=== PATIENT | female | born 1965 | race Caucasian/White ===

== ENCOUNTER 2017-12-24 11:00 | Emergency (ER) | payer OTHER, SELFPAY ==
[2017-12-24 11:04] VITALS: BP 133/81; PULSE 88; RESP 20; TEMP 36.8; O2SAT 100; BMI 35.0
[2017-12-24 11:19] LABS: Pregnancy Test Urine Negative (Negative)
[2017-12-24 12:11] VITALS: BP 129/73; PULSE 72; RESP 16; O2SAT 99
--- NOTE | 2017-12-24 12:24 | ED.FEMALEGU ---
HPI - Female Genitourinary General Chief complaint: Urogenital-Female Stated complaint: POSSIBLE KIDNEY STONE Time Seen by Provider: 12/24/17 12:24 Source: patient Mode of arrival: ambulatory Limitations: no limitations History of Present Illness HPI Narrative: This 52-year-old female comes in today due to bladder area pain that she thinks might be a kidney stone. She states this started fairly abruptly at midnight, woke her up and kept her up for about 4 hr. She states that the pain waxes and wanes on its own without any exacerbating or alleviating features. She states that she did have an episode of vomiting early in the morning. None since. She has not eaten today, kept down a small amount of water. She does not feel nauseated now. She has menses now does not know whether any hematuria. She states that she does not have pain in her flanks or elsewhere in her abdomen. She has not had fever, chills, or sweats. She states that she had some bladder/urinary pain about a week ago but seemed to resolve on its own, not having any dysuria now nor frequency or urgency. She denies any other new symptoms such as chest pain, dyspnea, pain or swelling in the extremities. She denies any vaginal discharge or STD concerns. She does have a history of kidney stones and this quality of pain feels similar Related Data Home Medications Medication Instructions Recorded Confirmed aspirin 81 mg PO QPM #0 03/18/17 12/24/17 atorvastatin 80 mg PO BEDTIME #0 03/18/17 12/24/17 empagliflozin [Jardiance] 12.5 mg PO QPM #0 03/18/17 12/24/17 lisinopril 20 mg PO QPM #0 03/18/17 12/24/17 metformin [Glucophage XR] 1,000 mg PO QPM #0 03/18/17 12/24/17 metoprolol tartrate 12.5 mg PO QPM #0 03/18/17 12/24/17 Previous Rx's Medication Instructions Recorded ciprofloxacin HCl [Cipro] 500 mg PO Q12H #10 tab 12/24/17 ondansetron [Zofran ODT] 4 mg PO Q6-8H PRN #6 tab 12/24/17 oxycodone-acetaminophen [Percocet] 1 tab PO Q4-6H PRN #8 tab 12/24/17 Allergies Allergy/AdvReac Type Severity Reaction Status Date / Time No Known Allergies Allergy Uncoded 12/24/17 11:03 Review of Systems Review of Systems All systems reviewed & are unremarkable except as noted in HPI and below PFSH Medical History CAD (coronary artery disease) (Acute) Nephrolithiasis (Acute) Diabetes (Chronic) HTN (hypertension) (Chronic) History of vertigo (Resolved) Surgical History Status post cholecystectomy (Resolved) Status post hernia repair (Resolved) Social History Smoking Status: Never smoker alcohol intake: current substance use type: former substance user Exam Narrative Exam Narrative: GENERAL APPEARANCE: Patient sitting comfortably, in no distress. HEENT: PERRL, EOMI NECK: Supple LUNGS: Clear to auscultation bilaterally. HEART: Rate and rhythm regular, normal S1 and S2, no S3 or S4. ABDOMEN: Soft, nondistended, bowel sounds present x 4 quadrants, no masses palpable, moderate midline suprapubic tenderness without guarding or rebound, no CVAT EXTREMITIES: No edema, no cyanosis DERMATOLOGIC: No jaundice or exanthem NEUROLOGIC: Alert and oriented with normal speech and coordination Initial Vital Signs Initial Vital Signs: Vital Signs Temperature 98.2 F 12/24/17 11:04 Pulse Rate 88 12/24/17 11:04 Respiratory Rate 20 12/24/17 11:04 Blood Pressure 133/81 H 12/24/17 11:04 Pulse Oximetry 100 12/24/17 11:04 Course Orders Ordered: ED Orders 12/24/17 13:01 Complete Blood Count AUTO DIFF Stat Comprehensive Metabolic Panel Stat 12/24/17 13:02 CT kidney ureter bladder (KUB) Stat Discontinued Medications Hydromorphone HCl (Dilaudid) 0.5 mg IV NOW ONE Stop: 12/24/17 12:57 Last Admin: 12/24/17 13:09 Dose: 0.5 mg Sodium Chloride (Normal Saline 0.9%) 1,000 mls @ 1,000 mls/hr IV BOLUS ONE Stop: 12/24/17 13:55 Last Infusion: 12/24/17 14:16 Dose: 0 mls/hr Admin: 12/24/17 13:09 Dose: 1,000 mls/hr Ketorolac Tromethamine (Toradol) 15 mg IV NOW ONE Stop: 12/24/17 12:57 Last Admin: 12/24/17 13:09 Dose: 15 mg Ondansetron HCl (Zofran) 4 mg IV NOW ONE Stop: 12/24/17 12:57 Last Admin: 12/24/17 13:10 Dose: Not Given Vital Signs - 8 hr 12/24/17 13:49 12/24/17 15:13 Pulse Rate 77 72 Respiratory Rate 16 18 Blood Pressure [Left Arm] 121/87 H 125/66 H Pulse Oximetry 97 97 MDM - Female Genitourinary Lab Data Attestation: I reviewed the patient's lab results. Result diagrams: 12/24/17 13:01 12/24/17 13:01 Lab Results 12/24/17 12/24/17 12/24/17 Range/Units 11:02 11:02 13:01 WBC 12.8 H (4.5-11.0) X10^3/uL RBC 5.05 (4.0-5.2) X10^6/uL Hgb 14.4 (12.0-16.0) g/dL Hct 43.7 (36-46) % MCV 86.6 (80-100) fL MCH 28.6 (26-34) PG MCHC 33.0 (30-36) % RDW 14.5 (11.6-14.8) % Plt Count 298 (150-400) X10^3/uL Neut % (Auto) 63.2 (50-75) % Lymph % (Auto) 24.5 L (25-40) % Powell % (Auto) 8.7 (3-14) % Eos % (Auto) 2.3 (2-4) % Baso % (Auto) 1.3 (0-2) % Neut # (Auto) 8100 H (0899-4556) /uL Sodium (137-145) mmol/L Potassium (3.4-5.1) mmol/L Chloride (98-107) mmol/L Carbon Dioxide (22-32) mmol/L BUN (7-17) mg/dL Creatinine (0.52-1.04) mg/dL Estimated GFR (>60) mL/min BUN/Creatinine Ratio (6-22) Glucose (70-100) mg/dL Calcium (8.4-10.2) mg/dL Total Bilirubin (0.2-1.3) mg/dL AST (14-36) IU/L ALT (9-52) IU/L Alkaline Phosphatase (38-126) U/L Total Protein (6.3-8.2) g/dL Albumin (3.5-5.0) g/dL Globulin (1.7-4.1) g/dL Albumin/Globulin Ratio (1.0-2.8) Urine Color Yellow Urine Appearance Cloudy Urine pH 6.0 (4.5-8.0) Ur Specific [place] <=1.005 (1.000-1.035) Urine Protein 1+ H (Negative) Urine Glucose (UA) 2+ (Normal) g/dL Urine Ketones Trace H (NEGATIVE) Urine Occult Blood 3+ H (Negative) Urine Nitrate Negative (Negative) Urine Bilirubin Negative (NEGATIVE) Urine Urobilinogen 0.2 (0.2) E.U./dL Ur Leukocyte Esterase 1+ H (NEGATIVE) Urine RBC 5-10/hpf H (0-5/HPF) Urine WBC >100/hpf H (0-5/HPF) Ur Squamous Epith Cells 1-5 /hpf Urine Bacteria Moderate (10-30) H (None) Ur Culture Indicated? Specimen cultured Micro UA Comment Not Reportable Urine Test Negative (Negative) 12/24/17 Range/Units 13:01 WBC (4.5-11.0) X10^3/uL RBC (4.0-5.2) X10^6/uL Hgb (12.0-16.0) g/dL Hct (36-46) % MCV (80-100) fL MCH (26-34) PG MCHC (30-36) % RDW (11.6-14.8) % Plt Count (150-400) X10^3/uL Neut % (Auto) (50-75) % Lymph % (Auto) (25-40) % Powell % (Auto) (3-14) % Eos % (Auto) (2-4) % Baso % (Auto) (0-2) % Neut # (Auto) (3139-6393) /uL Sodium 145 (137-145) mmol/L Potassium 3.8 (3.4-5.1) mmol/L Chloride 102 (98-107) mmol/L Carbon Dioxide 30 (22-32) mmol/L BUN 11 (7-17) mg/dL Creatinine 0.50 L (0.52-1.04) mg/dL Estimated GFR > 60.0 (>60) mL/min BUN/Creatinine Ratio 22.0 (6-22) Glucose 168 H (70-100) mg/dL Calcium 9.6 (8.4-10.2) mg/dL Total Bilirubin 0.4 (0.2-1.3) mg/dL AST 20 (14-36) IU/L ALT 32 (9-52) IU/L Alkaline Phosphatase 78 (38-126) U/L Total Protein 7.6 (6.3-8.2) g/dL Albumin 4.6 (3.5-5.0) g/dL Globulin 3.0 (1.7-4.1) g/dL Albumin/Globulin Ratio 1.5 (1.0-2.8) Urine Color Urine Appearance Urine pH (4.5-8.0) Ur Specific [place] (1.000-1.035) Urine Protein (Negative) Urine Glucose (UA) (Normal) g/dL Urine Ketones (NEGATIVE) Urine Occult Blood (Negative) Urine Nitrate (Negative) Urine Bilirubin (NEGATIVE) Urine Urobilinogen (0.2) E.U./dL Ur Leukocyte Esterase (NEGATIVE) Urine RBC (0-5/HPF) Urine WBC (0-5/HPF) Ur Squamous Epith Cells Urine Bacteria (None) Ur Culture Indicated? Micro UA Comment Urine Test (Negative) Imaging Data CT scan - abdomen: Radiologist's impression: View Report History [address] [address] [address] Scan Report Signed Patient: Christie Velasquez MR#: [id number] : 1965 Acct:[id number] Age/Sex: 52 / F Date of Service: 12/24/17 Loc: ED Accession Number: [id number] Procedure: CT kidney ureter bladder (KUB) Ordering Provider: Fiorella Bolivar P.A-C PROCEDURE: CT KIDNEY URETER BLADDER (KUB) INDICATIONS: bladder pain, h/o stone TECHNIQUE: Noncontrast 5 mm thick sections acquired from the diaphragms to the symphysis. 5 mm thick coronal and sagittal reformats were then performed. For radiation dose reduction, the following was used: automated exposure control, adjustment of mA and/or kV according to patient size. COMPARISON: None. FINDINGS: Image quality: Excellent. Lung bases: Lung bases are clear. Heart size is normal. Urinary system: Both kidneys are normal in size. 3 mm nonobstructing stone in upper to mid pole of left kidney is seen. No right-sided renal stone.. No hydronephrosis or perinephric fat stranding. Both ureters appear non-dilated throughout their expected courses. There is very mild diffuse bladder wall thickening. No discrete bladder wall mass is seen. No calcified bladder stones. Other solid organs: Liver is normal in size. Gallbladder is surgically absent. Pancreas is normal in contours. Spleen is normal in size. No adrenal nodules. Peritoneum and bowel: Unenhanced bowel loops demonstrate normal wall thickness and caliber. Small hiatal hernia is seen. Appendix is visualized and is within normal limits. No free fluid or air. Nodes and vessels: No retroperitoneal or mesenteric adenopathy by size criteria. Aorta and inferior vena cava are normal in caliber. Abdominal wall: No ventral hernias. Pelvis: No free pelvic fluid. No inguinal hernias or adenopathy. Uterus and bilateral ovaries are within normal limits. Bones: No suspicious bony lesions. No vertebral body compression fractures. IMPRESSION: 1. 3 mm nonobstructing stone in upper to mid pole of kidney. No right-sided renal stone. No hydronephrosis. No perinephric fat stranding. 2. Mild diffuse bladder wall thickening, which may represent cystitis. No discrete bladder wall mass is seen. 3. No bowel obstruction. No peritoneal free fluid of air. Small hiatal hernia. Dictated by: Gonzalez Plata M.D. on 12/24/2017 at 13:20 Approved by: Gonzalez Plata M.D. on 12/24/2017 at 13:24 Discharge Plan Departure Patient Disposition: Home, Self-Care Clinical Impression: Nephrolithiasis, UTI (urinary tract infection) Discharge Date/Time: 12/24/17 16:01 Interventions: ED Discharge Assessment Last Done: 12/24/17 15:56 Instructions: DI for Kidney Stones Activity Restrictions/Additional Instructions: Please return as we talked about if you have any acutely worsening symptoms. Otherwise please stop the new vitamin/dietary supplement you are taking it since it is unclear whether this may have exacerbated any of your symptoms. You have a small stone that is of a size that should pass on its own. It also appears that you could have a urinary infection so I have prescribed an antibiotic for this that you should peanut picker and start. I have prescribed a pain medicine called oxycodone/acetaminophen that you can take as needed, but do not drive as it can make you sleepy. You also may wish to add Aleve [id number] every 12 hr. I have also given you a prescription for nausea medicine in case your nausea comes back. You should follow up with your PCP next few days for recheck Prescriptions: New ciprofloxacin HCl [Cipro] 500 mg tablet 500 mg PO Q12H Qty: 10 RF: 0 oxycodone-acetaminophen [Percocet] 5-325 mg tablet 1 tab PO Q4-6H PRN (Reason: kidneynstone pain) Qty: 8 RF: 0 ondansetron [Zofran ODT] 4 mg tablet,disintegrating 4 mg PO Q6-8H PRN (Reason: nausea and vomiting) Qty: 6 RF: 0 No Action metformin [Glucophage XR] 500 MG tablet extended release 24 hr 1,000 mg PO QPM Qty: 0 RF: 0 lisinopril 20 MG tablet 20 mg PO QPM Qty: 0 RF: 0 empagliflozin [Jardiance] 25 MG tablet 12.5 mg PO QPM Qty: 0 RF: 0 atorvastatin 80 MG tablet 80 mg PO BEDTIME Qty: 0 RF: 0 aspirin 81 MG tablet,delayed release (DR/EC) 81 mg PO QPM Qty: 0 RF: 0 metoprolol tartrate 25 MG tablet 12.5 mg PO QPM Qty: 0 RF: 0 Referrals: Daina Bai [Other]
[2017-12-24 12:43] VITALS: BP 129/73
--- NOTE | 2017-12-24 13:02 | DI.CT.S_ITS ---
PROCEDURE: CT KIDNEY URETER BLADDER (KUB) INDICATIONS: bladder pain, h/o stone TECHNIQUE: Noncontrast 5 mm thick sections acquired from the diaphragms to the symphysis. 5 mm thick coronal and sagittal reformats were then performed. For radiation dose reduction, the following was used: automated exposure control, adjustment of mA and/or kV according to patient size. COMPARISON: None. FINDINGS: Image quality: Excellent. Lung bases: Lung bases are clear. Heart size is normal. Urinary system: Both kidneys are normal in size. 3 mm nonobstructing stone in upper to mid pole of left kidney is seen. No right-sided renal stone.. No hydronephrosis or perinephric fat stranding. Both ureters appear non-dilated throughout their expected courses. There is very mild diffuse bladder wall thickening. No discrete bladder wall mass is seen. No calcified bladder stones. Other solid organs: Liver is normal in size. Gallbladder is surgically absent. Pancreas is normal in contours. Spleen is normal in size. No adrenal nodules. Peritoneum and bowel: Unenhanced bowel loops demonstrate normal wall thickness and caliber. Small hiatal hernia is seen. Appendix is visualized and is within normal limits. No free fluid or air. Nodes and vessels: No retroperitoneal or mesenteric adenopathy by size criteria. Aorta and inferior vena cava are normal in caliber. Abdominal wall: No ventral hernias. Pelvis: No free pelvic fluid. No inguinal hernias or adenopathy. Uterus and bilateral ovaries are within normal limits. Bones: No suspicious bony lesions. No vertebral body compression fractures. IMPRESSION: 1. 3 mm nonobstructing stone in upper to mid pole of kidney. No right-sided renal stone. No hydronephrosis. No perinephric fat stranding. 2. Mild diffuse bladder wall thickening, which may represent cystitis. No discrete bladder wall mass is seen. 3. No bowel obstruction. No peritoneal free fluid of air. Small hiatal hernia. Dictated by: Gonzalez Plata M.D. on 12/24/2017 at 13:20 Approved by: Gonzalez Plata M.D. on 12/24/2017 at 13:24
[2017-12-24 13:08] LABS: Add Manual Diff / Slide Review NO; Basophils Percent Auto 1.3 % (0-2); Eosinophils Percent Auto 2.3 % (2-4); Hematocrit 43.7 % (36-46); Hemoglobin 14.4 g/dL (12.0-16.0); Lymphocytes Percent Auto 24.5 % (25-40); Mean Corpuscular Hemoglobin 28.6 PG (26-34); Mean Corpuscular Volume 86.6 fL (80-100); Monocytes Percent Auto 8.7 % (3-14); Neutrophils Absolute Auto 8100 /uL (3000-5900); Neutrophils Percent Auto 63.2 % (50-75); Platelet Count 298 X10^3/uL (150-400); Red Blood Cell Count 5.05 X10^6/uL (4.0-5.2); Red Cell Distribution Width 14.5 % (11.6-14.8); White Blood Cell Count 12.8 X10^3/uL (4.5-11.0)
[2017-12-24] MEDS: SODIUM CHLORIDE 0.9% 1,000 ML 1000 ML IV (13:09)
[2017-12-24] MEDS: KETOROLAC 15 MG/ML VIAL IV (13:09)
[2017-12-24] MEDS: HYDROMORPHONE 1 MG INJ 0.5 MG IV (13:09)
[2017-12-24 13:21] LABS: Appearance Urine UA CLOUDY; Bilirubin Urine UA NEGATIVE (NEGATIVE); Color Urine UA YELLOW; Glucose Urine UA 2+ g/dL (Normal); Ketones Urine UA TRACE (NEGATIVE); Leukocyte Esterase Urine UA 1+ (NEGATIVE); Nitrite Urine UA Negative (Negative); Occult Blood Urine UA 3+ (Negative); Protein Urine UA 1+ (Negative); Specific Gravity Urine UA <=1.005 (1.000-1.035); Urobilinogen Urine UA 0.2 E.U./dL (0.2)
[2017-12-24 13:22] LABS: Alanine Aminotransferase 32 IU/L (9-52); Albumin 4.6 g/dL (3.5-5.0); Albumin Globulin Ratio 1.5 (1.0-2.8); Alkaline Phosphatase 78 U/L (38-126); Aspartate Aminotransferase 20 IU/L (14-36); Bilirubin Total 0.4 mg/dL (0.2-1.3); Blood Urea Nitrogen 11 mg/dL (7-17); Calcium 9.6 mg/dL (8.4-10.2); Carbon Dioxide 30 mmol/L (22-32); Chloride 102 mmol/L (98-107); Estimated Glomerular Filt Rate > 60.0 mL/min (>60); Glucose 168 mg/dL (70-100); HEMOLYSIS 18 (0-50); Potassium 3.8 mmol/L (3.4-5.1); Sodium 145 mmol/L (137-145); Total Protein 7.6 g/dL (6.3-8.2)
[2017-12-24 13:31] LABS: RBC Urine 5-10/HPF (0-5/HPF); Squamous Epithelial Cell Urine 1-5 /HPF; WBC Urine >100/HPF (0-5/HPF)
[2017-12-24 13:32] LABS: Bacteria Urine Moderate (10-30); Culture Indicated Urine Specimen Cultured
[2017-12-24 13:49] VITALS: BP 121/87; PULSE 77; RESP 16; O2SAT 97
[2017-12-24 15:13] VITALS: BP 125/66; PULSE 72; RESP 18; O2SAT 97
== END 2017-12-24 16:01 | disposition home or self-care (01) ==
PROVIDERS: Emergency Medicine; Emergency Provider Internal Medicine
DX: N20.0 Calculus of kidney (principal); N39.0 Urinary tract infection, site not specified
CPT/HCPCS: 36591; 74176; 80053; 81001; 81025; 85025; 87077; 87086; 87186; 96361; 96374; 96375; 99283; 99284; J1170; J1885

== ENCOUNTER 2018-11-30 09:40 | Emergency (ER) | payer OTHER, SELFPAY ==
[2018-11-30 09:42] VITALS: BP 123/67; PULSE 102; RESP 20; TEMP 37.1; O2SAT 98; BMI 37.2
--- NOTE | 2018-11-30 09:47 | ED_ITS ---
HPI - General Adult General Chief complaint: Back Pain/Injury Stated complaint: 'my ass hurts' Time Seen by Provider: 11/30/18 09:41 Source: patient Mode of arrival: ambulatory Limitations: no limitations History of Present Illness HPI narrative: 53-year-old female here for evaluation of left lower back pain. Patient states that it started on Thursday. She does not know a specific incidents what caused the problems. She states that she you when got a massage on Thursday night which seemed to make things worse. She states that over the weekend the pain in the left lower back worsened. She went to a chiropractor yesterday which did not improve any of her symptoms. No urinary symptoms. No bowel changes. She did not fall. Not on anticoagulation. She states that it hurts to sit did moved to stand. Related Data Home Medications Medication Instructions Recorded Confirmed Jardiance 12.5 mg PO QPM #0 03/18/17 11/30/18 aspirin 81 mg PO QPM #0 03/18/17 11/30/18 atorvastatin 80 mg PO BEDTIME #0 03/18/17 11/30/18 lisinopril 20 mg PO QPM #0 03/18/17 11/30/18 metformin [Glucophage XR] 1,000 mg PO QPM #0 03/18/17 11/30/18 metoprolol tartrate 12.5 mg PO QPM #0 03/18/17 11/30/18 Probiotic 1 cap PO DAILY 11/30/18 11/30/18 multivitamin 1 tab PO DAILY 11/30/18 11/30/18 turmeric 1 dose PO DAILY 11/30/18 11/30/18 Previous Rx's Medication Instructions Recorded hydrocodone-acetaminophen [Maspeth] 1 tab PO Q4-6H PRN #10 tab 11/30/18 prednisone 20 mg PO DAILY 5 Days #5 tab 11/30/18 Allergies Allergy/AdvReac Type Severity Reaction Status Date / Time No Known Allergies Allergy Uncoded 12/24/17 11:03 Review of Systems Constitutional Denies fever(s) and Denies headache(s) ENT Ears, Nose, Mouth, and Throat: Denies vertigo, Denies dizziness, Denies headache(s) and Denies disequilibrium Cardiovascular Denies chest pain and Denies dyspnea Respiratory Denies dyspnea Gastrointestinal Gastrointestinal: Denies abdominal pain, Denies nausea and Denies vomiting Genitourinary Denies urinary frequency, Denies difficulty voiding, Denies dysuria and Denies vaginal discharge Musculoskeletal Reports back pain, Denies myalgias, Denies arthralgias and Reports stiffness Integumentary/Breasts Denies rash Neurologic Denies vertigo, Denies dizziness, Denies headache(s), Denies radicular pain, Denies paresthesias, Denies tremor(s) and Denies disequilibrium Hematologic/Lymphatic Denies easy bleeding and Denies easy bruising PENDING SALE TO [facility] Medical History CAD (coronary artery disease) (Acute) Nephrolithiasis (Acute) Diabetes (Chronic) HTN (hypertension) (Chronic) History of vertigo (Resolved) Surgical History (Updated 12/24/17 @ 13:38 by Fiorella Bolivar PA-C) Status post cholecystectomy (Resolved) Status post hernia repair (Resolved) Social History Smoking Status: Never smoker alcohol intake: current substance use type: former substance user Social History Smoking Status: Never smoker alcohol intake: current substance use type: former substance user Exam Initial Vital Signs Initial Vital Signs: Vital Signs Temperature 98.7 F 11/30/18 09:42 Pulse Rate 102 H 11/30/18 09:42 Respiratory Rate 20 11/30/18 09:42 Blood Pressure 123/67 11/30/18 09:42 Pulse Oximetry 98 11/30/18 09:42 Const General: cooperative, well developed, well groomed and No acute distress Orientation: alert, awake and oriented x3 HENMT Head: normal to inspection and normocephalic Resp Effort & Inspection: normal respiratory effort Cardio Rate: tachycardic Back/Spine/Pelvis Thoracic/Lumbar Spine: paraspinal tenderness (Left), No thoracic spinal tenderness and No lumbar spinal tenderness Sacroiliac Joints: nontender Skin Lesions: no lesions Rashes: no rashes Neuro General: alert and awake Cognition: normal cognition Speech: speech normal Gait: normal gait Extrem General: normal to inspection and capillary refill normal Course Orders Ordered: Discontinued Medications Hydromorphone HCl (Dilaudid) 1 mg IM NOW ONE Stop: 11/30/18 09:48 Last Admin: 11/30/18 10:04 Dose: 1 mg Ketorolac Tromethamine (Toradol) 30 mg IM NOW ONE Stop: 11/30/18 09:48 Last Admin: 11/30/18 09:59 Dose: 30 mg Vital Signs - 8 hr 11/30/18 09:42 11/30/18 10:42 Temperature 98.7 F Pulse Rate 102 H 89 Respiratory Rate 20 16 Blood Pressure 123/67 Blood Pressure [Right Arm] 143/82 H Pulse Oximetry 98 98 Medical Decision Making MDM Narrative Medical decision making narrative: Patient's history and physical exam is consistent with musculoskeletal left-sided lower back pain without radiculopathy. Low suspicion for fracture. Low suspicion for cauda equina. No urinary symptoms. States she reported improvement of her symptoms after the medications here in the emergency department. Will send home with a short course of steroids and symptom treatment. Patient was given return precautions and follow-up instructions. She expressed understanding and agreement with svetlana garcía. Discharge Plan Departure Patient Disposition: Home Clinical Impression: Strain of lumbar region Qualifiers: Encounter type: initial encounter Qualified Code(s): S39.012A - Strain of muscle, fascia and tendon of lower back, initial encounter Instructions: DI for Low Back Pain, DI for Muscle Strain Activity Restrictions/Additional Instructions: Take your medications as directed. You have no limitations on your activity. Contact your primary provider for follow-up. Return to the emergency department for any new or worsening symptoms Prescriptions: New hydrocodone-acetaminophen [Maspeth] 5-325 mg tablet 1 tab PO Q4-6H PRN (Reason: pain) Qty: 10 RF: 0 prednisone 20 mg tablet 20 mg PO DAILY 5 Days Qty: 5 RF: 0 No Action metformin [Glucophage XR] 500 MG tablet extended release 24 hr 1,000 mg PO QPM Qty: 0 RF: 0 lisinopril 20 MG tablet 20 mg PO QPM Qty: 0 RF: 0 Jardiance 25 MG tablet 12.5 mg PO QPM Qty: 0 RF: 0 atorvastatin 80 MG tablet 80 mg PO BEDTIME Qty: 0 RF: 0 aspirin 81 MG tablet,delayed release (DR/EC) 81 mg PO QPM Qty: 0 RF: 0 metoprolol tartrate 25 MG tablet 12.5 mg PO QPM Qty: 0 RF: 0 multivitamin Tablet 1 tab PO DAILY RF: 0 Probiotic 1 cap PO DAILY RF: 0 turmeric 1 dose PO DAILY RF: 0
[2018-11-30] MEDS: KETOROLAC 60 MG/2 ML VIAL 30 MG IM (09:59)
[2018-11-30] MEDS: HYDROMORPHONE 1 MG INJ IM (10:04)
[2018-11-30 10:42] VITALS: BP 143/82; PULSE 89; RESP 16; O2SAT 98
--- NOTE | 2018-11-30 10:44 | PC.NURSE ---
ambulate and moves steady and slow. skin warm dry pink.
[2018-11-30 11:34] VITALS: BP 126/69; PULSE 79; O2SAT 97
== END 2018-11-30 12:46 | disposition home or self-care (01) ==
PROVIDERS: Emergency Provider Emergency Medicine
DX: S39.012A Strain of muscle, fascia and tendon of lower back, initial encounter (principal)
CPT/HCPCS: 96372; 99283; J1170; J1885